=== PATIENT | male | born 1940 | race Two or more races ===

== ENCOUNTER 2016-11-02 15:19 | Inpatient (IN) | payer MEDICARE, BC ==
[~2016-11-02] VITALS: Ht 182.9 cm; Wt 95.3 kg
[~2016-11-02 15:19] MED LIST: ASPI-807 PO; CAL1TABL8 PO; MISO200T PO; NIAC500T2 PO; OXYC-128 PO; PRAV20TA4 PO
[2016-11-02 15:45] LABS: BASOPHILS # (AUTO) 0.1 /CMM (0.0-0.2); BASOPHILS % (AUTO) 0.5 % (0.0-2.0); DIFF TOTAL % 100 %; EOSINOPHILS # (AUTO) 0.1 /CMM (0.0-0.7); EOSINOPHILS % (AUTO) 1.1 % (0.0-6.0); HEMATOCRIT 47 % (39-51); HEMOGLOBIN 15.7 g/dL (13.5-17.5); LYMPHOCYTES # (AUTO) 1.4 /CMM (0.8-4.8); LYMPHOCYTES % (AUTO) 14.1 % (20.0-44.0); MEAN CORPUSCULAR HEMOGLOBIN 32 PG (26.0-33.0); MEAN CORPUSCULAR HGB CONC 34 g/dl (31.0-36.0); MEAN CORPUSCULAR VOLUME 95 fL (80-96); MONOCYTES # (AUTO) 0.9 /CMM (0.1-1.30); MONOCYTES % (AUTO) 9.1 % (2.0-12.0); NEUTROPHILS # (AUTO) 7.7 /CMM (1.8-8.9); NEUTROPHILS % (AUTO) 75.2 % (43.0-81.0); PLATELET COUNT (AUTO) 250 /CMM (150-450); RED BLOOD CELL COUNT(AUTO) 4.94 MIL/uL (4.5-6.0); WHITE BLOOD COUNT (AUTO) 10.2 K/uL (4.3-11.0)
[2016-11-02] MEDS ORDERED: DICL75TA5 PO (15:57)
[2016-11-02] MEDS ORDERED: NITR-84 PO (15:57)
[2016-11-02 16:00] LABS: CALCIUM, SERUM 8.8 mg/dL (8.5-10.1); CREATININE 1.6 mg/dL (0.6-1.3); POTASSIUM 4.5 mmol/L (3.5-5.1)
[2016-11-02 16:04] LABS: INR 0.99 (0.87-1.13); PROTHROMBIN TIME 10.4 SECS (9.5-12.7)
[2016-11-02 17:30] VITALS: BP 114/75
[2016-11-02 18:00] VITALS: BP 114/75
[2016-11-02] MEDS ORDERED: ZOLPIDEM TARTRATE 5 MG TABLET PO PRN (18:00)
[2016-11-02] MEDS ORDERED: Z GUARD REMEDY 2 OZ OINT TP PRN (18:00)
[2016-11-02] MEDS ORDERED: MAG HYDROX/AL HYDROX/SIMETH 30 ML UDC PO PRN (18:00)
[2016-11-02] MEDS ORDERED: ONDANSETRON HCL/PF 4 MG/2 ML VIAL IVP PRN (18:00)
[2016-11-02] MEDS ORDERED: ACETAMINOPHEN 325 MG TABLET PO PRN (18:00)
[2016-11-02] MEDS ORDERED: MAGNESIUM HYDROXIDE 30 ML UDC PO PRN (18:00)
[2016-11-02] MEDS ORDERED: HYDROCODONE/APAP 10/325MG 1 EA TABLET PO PRN (18:00)
[2016-11-02] MEDS ORDERED: MORPHINE SULFATE INJ 2 MG/ML DISP.SYRIN IV PRN (18:00)
[2016-11-02] MEDS ORDERED: HYDROCODONE/APAP 5/325MG 1 EACH TABLET PO PRN (18:00)
[2016-11-02 20:00] VITALS: BP 120/79
[2016-11-02 22:00] VITALS: BP 120/79
[2016-11-03] VITALS (8 sets, daily range): BP systolic 117–137; BP diastolic 68–85
[2016-11-03 06:38] LABS: BASOPHILS % (AUTO) 0.1 % (0.0-2.0); DIFF TOTAL % 100 %; EOSINOPHILS # (AUTO) 0.1 /CMM (0.0-0.7); EOSINOPHILS % (AUTO) 1.8 % (0.0-6.0); HEMATOCRIT 44 % (39-51); HEMOGLOBIN 15.1 g/dL (13.5-17.5); LYMPHOCYTES % (AUTO) 12.4 % (20.0-44.0); MEAN CORPUSCULAR HEMOGLOBIN 32 PG (26.0-33.0); MEAN CORPUSCULAR HGB CONC 34 g/dl (31.0-36.0); MEAN CORPUSCULAR VOLUME 95 fL (80-96); MONOCYTES # (AUTO) 0.8 /CMM (0.1-1.30); MONOCYTES % (AUTO) 9.4 % (2.0-12.0); NEUTROPHILS # (AUTO) 6.2 /CMM (1.8-8.9); NEUTROPHILS % (AUTO) 76.3 % (43.0-81.0); PLATELET COUNT (AUTO) 220 /CMM (150-450); RED BLOOD CELL COUNT(AUTO) 4.68 MIL/uL (4.5-6.0); WHITE BLOOD COUNT (AUTO) 8.1 K/uL (4.3-11.0)
[2016-11-03] MEDS ORDERED: IV D5/ 0.9% NACL 1,000 ML IV PRN (06:41)
[2016-11-03 07:12] LABS: CALCIUM, SERUM 8.4 mg/dL (8.5-10.1); CREATININE 1.3 mg/dL (0.6-1.3); PHOSPHORUS 3.3 mg/dL (2.5-4.9); POTASSIUM 4.7 mmol/L (3.5-5.1)
[2016-11-03 07:17] LABS: THYROID STIMULATING HORMONE 1.067 uIU/mL (0.358-3.74)
[2016-11-03] MEDS: PANTOPRAZOLE 40 MG TABLET.DR PO SCH (07:30)
[2016-11-03] MEDS: ATORVASTATIN 10 MG TABLET PO SCH (08:04)
[2016-11-03] MEDS: ASPIRIN EC 81 MG TABLET.DR PO SCH (08:04)
[2016-11-03] MEDS ORDERED: PRAVASTATIN SODIUM 20 MG TABLET PO SCH (09:00)
[2016-11-03] MEDS ORDERED: BACITRACIN 50000 UNITS/VIAL ONE (11:36)
[2016-11-03] MEDS ORDERED: ROCURONIUM BROMIDE 50 MG/5 ML ONE ×2 (15:25→16:16)
[2016-11-03] MEDS ORDERED: FENTANYL PF 250MCG/5ML AMPUL ONE (15:25)
[2016-11-03] MEDS ORDERED: VECURONIUM 10 MG VIAL ONE (16:14)
[2016-11-03] MEDS ORDERED: BUPIVACAINE 0.5 % PF 150 MG/30 ML VIAL ONE (16:31)
[2016-11-03] MEDS ORDERED: MIDAZOLAM HCL 2 MG/2ML VIAL ONE (16:54)
[2016-11-03] MEDS ORDERED: HYDROMORPHONE INJ 2 MG/ML DISP.SYRIN ONE (16:54)
[2016-11-03] MEDS ORDERED: HOME MED MISCELLANEOUS XX SCH (17:30)
[2016-11-03] MEDS ORDERED: IV SET PRIMARY PUMP SET 1 EA INFUS.SET MC ONE (17:58)
[2016-11-03] MEDS ORDERED: SECONDARY IV SET 1 EA INFUS.SET MC ONE ×2 (17:58→22:22)
[2016-11-03] MEDS ORDERED: HYDROMORPHONE 1 MG/1 ML DISP.SYRIN IV PRN (18:00)
[2016-11-03] MEDS ORDERED: oxyCODONE/APAP (5/325 MG) 1 UDTAB TABLET PO PRN ×2 (18:00)
[2016-11-03] MEDS: IV LR 1000 ML 1,000 ML IV PRN (18:09)
[2016-11-03] MEDS: CLINDAMYCIN 600 MG in IV D5W 50 ML IV SCH (22:28)
[2016-11-04] MEDS: CLINDAMYCIN 600 MG in IV D5W 50 ML IV SCH (04:25)
[2016-11-04] MEDS: IV LR 1000 ML 1,000 ML IV PRN (04:29)
[2016-11-04 08:00] VITALS: BP 125/78
[2016-11-04] MEDS: PANTOPRAZOLE 40 MG TABLET.DR PO SCH (08:12)
[2016-11-04] MEDS: ASPIRIN EC 81 MG TABLET.DR PO SCH (08:12)
[2016-11-04] MEDS: ATORVASTATIN 10 MG TABLET PO SCH (08:13)
== END 2016-11-04 10:30 | disposition home or self-care (01) | DRG 483 ==
LOC: ER 15:29 → MED 17:24
PROC: 0RPK0JZ Removal of Synthetic Substitute from Left Shoulder Joint, Open Approach (ICD-10-PCS; 2016-11-03)
PROC: 0RRK00Z Replacement of Left Shoulder Joint with Reverse Ball and Socket Synthetic Substitute, Open Approach (ICD-10-PCS; principal; 2016-11-03 16:02)
DX: T84.028A Dislocation of other internal joint prosthesis, initial encounter (principal); N17.0 Acute kidney failure with tubular necrosis; Z96.643 Presence of artificial hip joint, bilateral; Y79.2 Prosthetic and other implants, materials and accessory orthopedic devices associated with adverse incidents; E78.5 Hyperlipidemia, unspecified; F17.200 Nicotine dependence, unspecified, uncomplicated; M19.90 Unspecified osteoarthritis, unspecified site; Z96.651 Presence of right artificial knee joint; Y93.9 Activity, unspecified; Y92.009 Unspecified place in unspecified non-institutional (private) residence as the place of occurrence of the external cause; Y83.9 Surgical procedure, unspecified as the cause of abnormal reaction of the patient, or of later complication, without mention of misadventure at the time of the procedure
CPT/HCPCS: 36415; 71010-TC; 80048-TC; 80061-TC; 83735-TC; 84100-TC; 84443-TC; 85025-TC; 85730-TC; 87081-TC; 93307-TC; A4565; A4606; A6402; J1170; J2250; J3010; J3490; J7060; J7120; Z7610

== ENCOUNTER 2018-05-02 06:45 | Inpatient (IN) | payer MEDICARE, BC ==
[~2018-05-02] VITALS: Ht 182.9 cm; Wt 90.7 kg
[~2018-05-02 06:45] MED LIST changes: -CAL1TABL8 PO; +DICL75TA5 PO; +NITR-84 PO; -OXYC-128 PO
[2018-05-02 07:31] LABS: BASOPHILS # (AUTO) 0.1 /CMM (0.0-0.2); BASOPHILS % (AUTO) 1.6 % (0.0-2.0); EOSINOPHILS % (AUTO) 2.6 % (0.0-6.0); HEMATOCRIT 41 % (39-51); HEMOGLOBIN 14.1 g/dL (13.5-17.5); LYMPHOCYTES # (AUTO) 1.2 /CMM (0.8-4.8); LYMPHOCYTES % (AUTO) 15.1 % (20.0-44.0); MEAN CORPUSCULAR HEMOGLOBIN 33 PG (26.0-33.0); MEAN CORPUSCULAR HGB CONC 35 g/dl (31.0-36.0); MEAN CORPUSCULAR VOLUME 94 fL (80-96); MONOCYTES # (AUTO) 0.8 /CMM (0.1-1.30); MONOCYTES % (AUTO) 9.9 % (2.0-12.0); NEUTROPHILS # (AUTO) 5.4 /CMM (1.8-8.9); NEUTROPHILS % (AUTO) 70.8 % (43.0-81.0); PLATELET COUNT (AUTO) 237 /CMM (150-450); RDW COEFFICIENT OF VARIATION 12.5 (11.5-15.0); RED BLOOD CELL COUNT(AUTO) 4.34 MIL/uL (4.5-6.0); WHITE BLOOD COUNT (AUTO) 7.7 K/uL (4.3-11.0)
[2018-05-02 07:43] LABS: CALCIUM, SERUM 8.8 mg/dL (8.5-10.1); CARBON DIOXIDE 26 mmol/L (21-32); CHLORIDE 103 mmol/L (98-107); CREATININE 1.3 mg/dL (0.6-1.3); GLUCOSE 167 mg/dL (74-106); POTASSIUM 4.4 mmol/L (3.5-5.1); SODIUM SERUM 138 mmol/L (136-145); UREA NITROGEN, BLOOD 21 mg/dL (7-18)
[2018-05-02 07:44] LABS: INR 0.91 (0.87-1.13)
[2018-05-02 07:49] LABS: ALANINE AMINOTRANSFERASE 29 U/L (12-78); ALBUMIN 3.7 g/dL (3.4-5.0); ALKALINE PHOSPHATASE 139 U/L (46-116); ASPARTATE AMINOTRANSFERASE 16 U/L (15-37); BILIRUBIN,DIRECT 0.1 mg/dL (0.0-0.2); BILIRUBIN,TOTAL 0.5 mg/dL (0.2-1.0); TOTAL PROTEIN, SERUM 7.1 g/dL (6.4-8.2)
[2018-05-02] MEDS ORDERED: RANI150C4 PO (08:10)
[2018-05-02] MEDS ORDERED: METF500T6 PO (08:10)
[2018-05-02] MEDS ORDERED: PARO20TA7 PO (08:10)
[2018-05-02] MEDS ORDERED: CLIN150C16 PO (08:10)
[2018-05-02] MEDS ORDERED: ESOM40CA PO (08:10)
[2018-05-02 10:00] VITALS: BP 128/74
[2018-05-02] MEDS ORDERED: MAG HYDROX/AL HYDROX/SIMETH 30 ML UDC PO PRN (10:00)
[2018-05-02] MEDS ORDERED: MAGNESIUM HYDROXIDE 30 ML UDC PO PRN (10:00)
[2018-05-02] MEDS ORDERED: ACETAMINOPHEN 325 MG TABLET PO PRN (10:00)
[2018-05-02] MEDS ORDERED: ZOLPIDEM TARTRATE 5 MG TABLET PO PRN (10:00)
[2018-05-02] MEDS ORDERED: ONDANSETRON HCL/PF 4 MG/2 ML VIAL IVP PRN (10:00)
[2018-05-02] MEDS ORDERED: HYDROCODONE/APAP 5/325MG 1 EACH TABLET PO PRN (10:00)
[2018-05-02] MEDS ORDERED: Z GUARD REMEDY 2 OZ OINT TP PRN (10:00)
[2018-05-02] MEDS: PAROXETINE HCL 20 MG TABLET PO SCH (10:58)
[2018-05-02] MEDS: METFORMIN 500 MG TABLET PO SCH (10:58)
[2018-05-02] MEDS: ATORVASTATIN 10 MG TABLET PO SCH (10:58)
[2018-05-02] MEDS: LOSARTAN POTASSIUM 50 MG TABLET PO SCH (10:58)
[2018-05-02] MEDS ORDERED: PRAVASTATIN SODIUM 20 MG TABLET PO SCH (11:00)
[2018-05-02] MEDS ORDERED: MISOPROSTOL 200 MCG TABLET PO SCH (11:00)
[2018-05-02 11:05] LABS: THYROID STIMULATING HORMONE 1.083 uIU/mL (0.358-3.74)
[2018-05-02] MEDS: MISOPROSTOL 100 MCG TABLET PO SCH (12:00)
[2018-05-02 16:00] VITALS: BP 144/76
[2018-05-02 16:04] VITALS: BP 144/76
[2018-05-02 20:00] VITALS: BP 121/77
[2018-05-02] MEDS: FAMOTIDINE (20 MG) 20 MG TABLET PO SCH ×2 (20:42→22:00)
[2018-05-02 21:22] LABS: APPEARANCE,URINE SL CLOUDY (CLEAR); BILIRUBIN,URINE NEGATIVE (NEGATIVE); BLOOD, URINE NEGATIVE Ery/uL (NEGATIVE); COLOR,URINE YELLOW (YELLOW); KETONES,URINE NEGATIVE (NEGATIVE); LEUKOCYTE ESTERASE ,URINE TRACE (NEGATIVE); NITRITE, URINE NEGATIVE (NEGATIVE); PH,URINE 6.5 (5.0-8.0); PROTEIN,URINE NEGATIVE (NEGATIVE); UGLUCOSE NEGATIVE (NEGATIVE); UROBILINOGEN,URINE 0.2 EU/dL (0.2)
[2018-05-02 21:42] LABS: BACTERIA,URINE Many /HPF (None Seen); RBC,URINE 0-2 /HPF (0-2); SQUAMOUS EPITHELIAL CELL,UR Rare /HPF (None Seen)
[2018-05-03 06:30] LABS: BASOPHILS # (AUTO) 0.1 /CMM (0.0-0.2); BASOPHILS % (AUTO) 0.8 % (0.0-2.0); EOSINOPHILS % (AUTO) 3.2 % (0.0-6.0); HEMATOCRIT 39 % (39-51); HEMOGLOBIN 13.8 g/dL (13.5-17.5); LYMPHOCYTES # (AUTO) 1.5 /CMM (0.8-4.8); LYMPHOCYTES % (AUTO) 21.3 % (20.0-44.0); MEAN CORPUSCULAR HEMOGLOBIN 34 PG (26.0-33.0); MEAN CORPUSCULAR HGB CONC 35 g/dl (31.0-36.0); MEAN CORPUSCULAR VOLUME 95 fL (80-96); MONOCYTES # (AUTO) 0.7 /CMM (0.1-1.30); MONOCYTES % (AUTO) 10.2 % (2.0-12.0); NEUTROPHILS # (AUTO) 4.5 /CMM (1.8-8.9); NEUTROPHILS % (AUTO) 64.5 % (43.0-81.0); PLATELET COUNT (AUTO) 212 /CMM (150-450); RDW COEFFICIENT OF VARIATION 12.3 (11.5-15.0); RED BLOOD CELL COUNT(AUTO) 4.11 MIL/uL (4.5-6.0)
[2018-05-03 07:01] LABS: CHOLESTEROL 124 mg/dL (<200); HDL CHOLESTEROL 25 mg/dL (40-60); LDL 85 mg/dL (0-99); TRIGLYCERIDES 160 mg/dL (30-150)
[2018-05-03] MEDS: PANTOPRAZOLE 40 MG TABLET.DR PO SCH (07:30)
[2018-05-03 08:00] VITALS: BP 119/72
[2018-05-03] MEDS: METFORMIN 500 MG TABLET PO SCH (08:01)
[2018-05-03] MEDS: MISOPROSTOL 100 MCG TABLET PO SCH (08:01)
[2018-05-03] MEDS: LOSARTAN POTASSIUM 50 MG TABLET PO SCH (08:01)
[2018-05-03] MEDS: PAROXETINE HCL 20 MG TABLET PO SCH (08:02)
[2018-05-03] MEDS: ATORVASTATIN 10 MG TABLET PO SCH (08:02)
[2018-05-03] MEDS ORDERED: MISOPROSTOL 100 MCG TABLET PO SCH (09:00)
[2018-05-03 10:05] LABS: ALANINE AMINOTRANSFERASE 26 U/L (12-78); ALBUMIN 3.3 g/dL (3.4-5.0); ALKALINE PHOSPHATASE 100 U/L (46-116); ASPARTATE AMINOTRANSFERASE 16 U/L (15-37); BILIRUBIN,TOTAL 0.7 mg/dL (0.2-1.0); CALCIUM, SERUM 8.5 mg/dL (8.5-10.1); CARBON DIOXIDE 27 mmol/L (21-32); CHLORIDE 103 mmol/L (98-107); CREATININE 1.2 mg/dL (0.6-1.3); GLUCOSE 134 mg/dL (74-106); MAGNESIUM 1.9 mg/dL (1.8-2.4); PHOSPHORUS 3.9 mg/dL (2.5-4.9); POTASSIUM 4.5 mmol/L (3.5-5.1); SODIUM SERUM 137 mmol/L (136-145); TOTAL PROTEIN, SERUM 6.4 g/dL (6.4-8.2); UREA NITROGEN, BLOOD 16 mg/dL (7-18)
[2018-05-03] MEDS ORDERED: MIDAZOLAM HCL 2 MG/2ML VIAL ONE (12:08)
[2018-05-03] MEDS ORDERED: CLINDAMYCIN 900 MG/6 ML VIAL ONE (12:09)
[2018-05-03] MEDS ORDERED: FENTANYL PF 100MCG/2ML AMPUL ONE (12:09)
[2018-05-03] MEDS ORDERED: BUPIVACAINE MPF 0.75% 30 ML VIAL ONE (12:10)
[2018-05-03] MEDS ORDERED: ROCURONIUM BROMIDE 50 MG/5 ML ONE (12:20)
[2018-05-03] MEDS ORDERED: BACITRACIN 50000 UNITS/VIAL ONE (13:04)
[2018-05-03] MEDS ORDERED: MORPHINE SULFATE INJ 2 MG/ML DISP.SYRIN IV PRN (14:30)
[2018-05-03] MEDS ORDERED: HYDROCODONE/APAP 5/325MG 1 EACH TABLET PO PRN (14:30)
[2018-05-03] MEDS ORDERED: SENNOSIDES 8.6 MG TABLET PO PRN (14:30)
[2018-05-03] MEDS ORDERED: BISACODYL SUPP (10 MG) 10 MG/SUPP.RECT SUPP.RECT RC PRN (14:30)
[2018-05-03 15:25] VITALS: BP 112/84
[2018-05-03] MEDS: IV LR 1000 ML 1,000 ML IV PRN (15:44)
[2018-05-03 16:00] VITALS: BP 112/67
[2018-05-03] MEDS ORDERED: MEROPENEM 500 MG in IV NS 0.9% 50 ML IV SCH ×2 (16:30→17:00)
[2018-05-03] MEDS ORDERED: FEE PK DOSING 1 MIN EA MC ONE (16:35)
[2018-05-03] MEDS ORDERED: DOCUSATE SODIUM 250 MG CAPSULE PO SCH (17:00)
[2018-05-03] MEDS: LEVOFLOXACIN 500 MG /D5W 100ML 500 MG in PREMIX 1 EA IV SCH (17:02)
[2018-05-03] MEDS: VANCOMYCIN 1.25 GM in IV D5W 500 ML IV SCH (18:42)
[2018-05-03] MEDS ORDERED: oxyCODONE IR immediate release 5 MG PO ONE (18:46)
[2018-05-03] MEDS ORDERED: MAG HYDROX/AL HYDROX/SIMETH 30 ML UDC PO PRN (19:00)
[2018-05-03] MEDS ORDERED: MORPHINE SULFATE INJ 4 MG/ML DISP.SYRIN IM PRN (19:00)
[2018-05-03] MEDS ORDERED: diphenhydrAMINE HCL 25 MG CAPSULE PO PRN (19:00)
[2018-05-03 20:00] VITALS: BP 121/80
[2018-05-03] MEDS: FAMOTIDINE (20 MG) 20 MG TABLET PO SCH (22:00)
[2018-05-04] MEDS: IV LR 1000 ML 1,000 ML IV PRN (03:09)
[2018-05-04] MEDS: oxyCODONE IR immediate release 5 MG PO PRN ×3 (05:19→15:27)
[2018-05-04 06:58] LABS: BASOPHILS % (AUTO) 0.2 % (0.0-2.0); EOSINOPHILS % (AUTO) 0.2 % (0.0-6.0); HEMATOCRIT 37 % (39-51); HEMOGLOBIN 12.5 g/dL (13.5-17.5); LYMPHOCYTES # (AUTO) 1.2 /CMM (0.8-4.8); LYMPHOCYTES % (AUTO) 11.9 % (20.0-44.0); MEAN CORPUSCULAR HEMOGLOBIN 33 PG (26.0-33.0); MEAN CORPUSCULAR HGB CONC 34 g/dl (31.0-36.0); MEAN CORPUSCULAR VOLUME 98 fL (80-96); MONOCYTES # (AUTO) 0.8 /CMM (0.1-1.30); MONOCYTES % (AUTO) 8.2 % (2.0-12.0); NEUTROPHILS % (AUTO) 79.5 % (43.0-81.0); PLATELET COUNT (AUTO) 229 /CMM (150-450); RDW COEFFICIENT OF VARIATION 13.1 (11.5-15.0); RED BLOOD CELL COUNT(AUTO) 3.81 MIL/uL (4.5-6.0); WHITE BLOOD COUNT (AUTO) 10.1 K/uL (4.3-11.0)
[2018-05-04 07:06] LABS: CALCIUM, SERUM 8.4 mg/dL (8.5-10.1); CARBON DIOXIDE 26 mmol/L (21-32); CHLORIDE 103 mmol/L (98-107); CREATININE 1.1 mg/dL (0.6-1.3); GLUCOSE 153 mg/dL (74-106); POTASSIUM 4.2 mmol/L (3.5-5.1); SODIUM SERUM 137 mmol/L (136-145); UREA NITROGEN, BLOOD 17 mg/dL (7-18)
[2018-05-04 08:00] VITALS: BP 108/73
[2018-05-04] MEDS: LOSARTAN POTASSIUM 50 MG TABLET PO SCH (09:00)
[2018-05-04] MEDS: MISOPROSTOL 100 MCG TABLET PO SCH (09:09)
[2018-05-04] MEDS: PAROXETINE HCL 20 MG TABLET PO SCH (09:11)
[2018-05-04] MEDS: PANTOPRAZOLE 40 MG TABLET.DR PO SCH (09:11)
[2018-05-04] MEDS: ATORVASTATIN 10 MG TABLET PO SCH (09:11)
[2018-05-04] MEDS: METFORMIN 500 MG TABLET PO SCH (09:11)
[2018-05-04] MEDS: VANCOMYCIN 1.25 GM in IV D5W 500 ML IV SCH (11:46)
[2018-05-04] MEDS: LEVOFLOXACIN 500 MG /D5W 100ML 500 MG in PREMIX 1 EA IV SCH (16:11)
[2018-05-04] MEDS ORDERED: LACTOBACILLUS RHAMNOSUS GG 1 EACH CAP.SPRINK PO SCH (17:00)
[2018-05-04] MEDS ORDERED: LOSA50TA3 PO (19:18)
[2018-05-04] MEDS ORDERED: RXVAN XX (19:18)
[2018-05-04] MEDS ORDERED: LEVO500T75 PO (19:18)
== END 2018-05-04 20:35 | disposition home health service (06) | DRG 495 ==
LOC: ER 06:48 → MED 09:15
PROVIDERS: ADMIT Specialist; ATTEND Specialist
PROC: 0RHK08Z Insertion of Spacer into Left Shoulder Joint, Open Approach (ICD-10-PCS; 2018-05-03)
PROC: 0RPK0JZ Removal of Synthetic Substitute from Left Shoulder Joint, Open Approach (ICD-10-PCS; principal; 2018-05-03 12:50)
PROC: 02HV33Z Insertion of Infusion Device into Superior Vena Cava, Percutaneous Approach (ICD-10-PCS; 2018-05-04)
PROC: B548ZZA Ultrasonography of Superior Vena Cava, Guidance (ICD-10-PCS; 2018-05-04)
DX: T84.59XA Infection and inflammatory reaction due to other internal joint prosthesis, initial encounter (principal); N17.0 Acute kidney failure with tubular necrosis; E78.5 Hyperlipidemia, unspecified; G89.29 Other chronic pain; I48.91 Unspecified atrial fibrillation; K21.9 Gastro-esophageal reflux disease without esophagitis; Z96.653 Presence of artificial knee joint, bilateral; Z96.643 Presence of artificial hip joint, bilateral; Z85.820 Personal history of malignant melanoma of skin; Z87.440 Personal history of urinary (tract) infections; E11.65 Type 2 diabetes mellitus with hyperglycemia; Z79.84 Long term (current) use of oral hypoglycemic drugs; K59.00 Constipation, unspecified; Y83.1 Surgical operation with implant of artificial internal device as the cause of abnormal reaction of the patient, or of later complication, without mention of misadventure at the time of the procedure; Y92.009 Unspecified place in unspecified non-institutional (private) residence as the place of occurrence of the external cause; Z66 Do not resuscitate
CPT/HCPCS: 36415; 71045-TC; 80048-TC; 80053-TC; 80061-TC; 80076-TC; 81000-TC; 82306; 82962-TC; 83735-TC; 84100-TC; 84439-TC; 84443-TC; 85025-TC; 85730-TC; 86850-TC; 87040-TC; 87070-TC; 87081-TC; 87086-TC; 87186-TC; A4216; A4606; A6253; A6402; A6403; C1751; J1956; J2185; J2250; J3010; J3370; J3490; J7060; J7120; Q0163; Z7610